=== PATIENT | female | born 1995 | race Caucasian/White ===

== ENCOUNTER 2017-03-26 13:18 | Observation (INO) | payer OTHER ==
[~2017-03-26] VITALS: Ht 172.7 cm; Wt 64.9 kg
[2017-03-26 14:02] VITALS: BP 114/79; PULSE 74; RESP 16; O2SAT 100
[2017-03-26 14:52] LABS: BASOPHILS % (AUTO) 0.2 % (0-3); EOSINOPHILS % (AUTO) 0.4 % (0-5); MONOCYTES % (AUTO) 6.6 % (4-12); Mean Corpuscular Hemoglobin 27.8 pg (27.0-35.0); Mean Corpuscular Volume 82.8 fL (81-100); NEUTROPHILS % (AUTO) 83.5 % (40-74); Platelet Count 313 bil/L (150-400)
[2017-03-26 15:15] LABS: Magnesium 1.9 mg/dL (1.6-2.6)
--- NOTE | 2017-03-26 15:51 | ED.REPORT ---
HPI-Abd Pain F Under 41 Date of Service Mar 26, 2017 ED Provider: Reynaldo Freire DO This is a 22-year-old female who is generally healthy who presents to the emergency department for abdominal pain. Patient notes that 10:30 AM this morning he developed sudden sharp abdominal pain in her right lower quadrant. The pain does not radiate. Originally it was relieved with lying down however now she it is constant pain that is worse with movement. She has not had anything like this prior. She has associated nausea without vomiting. She denies fevers, chills, chest pain, shortness of breath, diarrhea, constipation, urinary changes. She has no history of kidney stones or family history. She denies any history of STDs. She reports not being sexually active and denies being . She has not had any abdominal surgeries. Nursing Notes Stated Complaint: ABDOMINAL PAIN Chief Complaint: Female Abdominal Pain Nursing Notes Reviewed: Yes Allergies: Coded Allergies: No Known Allergies (Unverified , 03/26/17) General Time Seen by MD: 15:30 Chief Complaint Abdominal pain Hx Obtained From: Patient Past Medical History Past Medical History None Past Surgical History None Smoking History Never Smoker Social History Alcohol Use: Denies alcohol use Drug Use: Denies drug use Review of Systems Constitutional: Denies: Chills, Fever Respiratory: Denies: Shortness of breath Cardiovascular: Denies: Chest pain GI: Reports: Abdominal pain, Nausea, Denies: Vomiting Female: Denies: Dysuria, Urinary frequency Musculoskeletal: Denies: Back pain Complete sys rev & neg: except as marked. Physical Exam Initial Vital Signs Vital Signs (First) Date Time Temp Pulse Resp B/P Pulse Ox O2 Delivery O2 Flow Rate FiO2 03/26/17 14:02 36.7 74 16 114/79 100 03/26/17 16:10 Room Air Initial VS: Reviewed General/Constitutional: Awake, Alert, No acute distress, Well appearing, Not toxic appearing Respiratory / Chest: Breath sounds NL, Breath sounds = bilat, No respiratory distress Cardiovascular: Heart rate NL, Regular rhythm, Heart sounds NL Abdomen: Atraumatic, Soft, No guarding, No rebound, BS normoactive Tenderness/Guarding/Rebound: Positive: McBurney's point tender Negative Dickens's, negative obturator's, positive psoas sign. Interpretation & Diagnostics Lab Results Interpretation Result Diagram: 03/26/17 1436 03/26/17 1436 Test 03/26/17 14:30 03/26/17 14:36 Hold Urine Received (Received) White Blood Count 21.2th/mm3 (3.8-10.1) Red Blood Count 4.78mil/mm3 (3.90-5.20) Hemoglobin 13.3g/dL (12.0-15.6) Hematocrit 39.6% (35.0-46.0) Mean Corpuscular Volume 82.8fL (81-100) Mean Corpuscular Hemoglobin 27.8pg (27.0-35.0) Mean Corpuscular Hemoglobin Concent 33.6% (32.0-37.0) Red Cell Distribution Width 12.9% (12.3-15.4) Platelet Count 313bil/L (150-400) Neutrophils (%) (Auto) 83.5% (40-74) Lymphocytes (%) (Auto) 9.0% (14-46) Monocytes (%) (Auto) 6.6% (4-12) Eosinophils (%) (Auto) 0.4% (0-5) Basophils (%) (Auto) 0.2% (0-3) Sodium Level 139mEq/L (134-144) Potassium Level 3.9mEq/L (3.5-5.2) Chloride Level 101mEq/L (97-108) Carbon Dioxide Level 24mmol/L (18-29) Blood Urea Nitrogen 15mg/dL (6-20) Creatinine 0.64mg/dL (0.57-1.00) Estimat Glomerular Filtration Rate 168mL/min (>59) Glucose Level 85mg/dL (60-99) Calcium Level 9.6mg/dL (8.5-10.1) Magnesium Level 1.9mg/dL (1.6-2.6) Total Bilirubin 0.4mg/dL (0.0-1.2) Aspartate Amino Transf (AST/SGOT) 16U/L (0-50) Alanine Aminotransferase (ALT/SGPT) 10U/L (0-32) Alkaline Phosphatase 55U/L (25-150) Total Protein 7.8g/dL (6.4-8.4) Albumin 4.9g/dL (3.4-5.0) Lipase 23U/L (13-60) Hold Browne Top Tube Received (Received) CT Abd / Pelvis Interpretation IMPRESSION: 1. Mild appendiceal dilatation with wall thickening suspicious for early acute appendicitis. There is no periappendiceal fat stranding, abscess, or pneumoperitoneum. These findings were discussed with Dr. Edwards at 5:30 PM on 03/26/17. Dictated by: Mariajose Blackwood M.D. on 03/26/2017 at 17:23 Approved by: Mariajose Blackwood M.D. on 03/26/2017 at 17:31 Study type: Abdominal CT IV contrast Interpretation / Wet Read by: Interpret - Radiologist Re-Eval/Medical Decision Med Decision/Clinical Course This is a 22-year-old female who is generally healthy who presents for quadrant abdominal pain. She has positive McBurney's and leukocytosis. Concern is for appendicitis and pelvic related issues. Patient denies any sexual history. CT abdomen showed mild appendiceal dilatation with wall thickening suspicious for early acute appendicitis. Patient was admitted to the hospital for appendicitis. Consultation #1: Referral / Consult Name: Star Novoa MD Consulted With: Surgeon Call Returned at: 17:52 Estimator: Will see patient, Agrees with eval, Agrees with plan, Accepts admit Consultation #2: Referral / Consult Name: Star Novoa MD Consulted With: Surgeon Call Returned at: 18:20 Estimator: Will see patient, Accepts admit Note: Dr. Novoa will admit the pt and he may do surgery tomorrow morning. Counseled Regarding: Diagnosis, Lab results, Need for admission Discharge & Departure Primary Impression: Appendicitis Appendicitis type: acute appendicitis Acute appendicitis type: unspecified acute appendicitis type Qualified Code: K35.80 - Unspecified acute appendicitis Disposition: ADMITTED TO HOSPITAL Referrals: NOPCP (PCP) Attending Statment The patient was seen and examined together with Dr. yeboah on 03/26/17 and I have added additional information to the note above. Sarmad Yeboah DO Mar 26, 2017 15:51 Keira Carmona Mar 26, 2017 17:32 Reynaldo Freire DO Mar 26, 2017 18:54
[2017-03-26] MEDS ORDERED: Iohexol 300 mg/mL 30 mL Inj PO ONE (15:55)
[2017-03-26 16:10] VITALS: BP 125/76; PULSE 105; RESP 14
[2017-03-26] MEDS ORDERED: Piperacillin-Tazo 3.375 Gm Inj 3.375 GM in Dextrose 5% Minibag Plus 50 ML IV ONE (17:30)
--- NOTE | 2017-03-26 17:32 | DRSVH ---
PROCEDURE: CT ABDOMEN AND PELVIS WITH CONTRAST ([id number]) INDICATIONS: RLQ pain TECHNIQUE: After the administration of oral and intravenous contrast, 5 mm thick sections acquired from the diap hragms to the symphysis. 5 mm thick coronal and sagittal reformats were performed. For radiation do se reduction, the following was used: automated exposure control, adjustment of mA and/or kV accordi ng to patient size. COMPARISON: None. FINDINGS: Image quality: Excellent. ABDOMEN: Lung bases: Lung bases are clear. Heart size is normal. Solid organs: Liver and spleen are normal in size and enhancement. Gallbladder is unremarkable. Bi liary system is non-dilated. Pancreas enhances normally. No adrenal nodules. Kidneys are normal in size and enhancement, without hydronephrosis. Peritoneum and bowel: Stomach, small bowel, and colon loops are normal in caliber and wall thickness . No free fluid or air. Nodes and vessels: No retroperitoneal or mesenteric adenopathy. The appendix measures between 6 and 9 mm in diameter. The appendiceal wall is thickened. There is no periappendiceal fat stranding or mohit e fluid. Trace gas is present within the appendiceal lumen. No appendicolith. Aorta and inferior gigi a cava are normal in caliber. Miscellaneous: No ventral hernias. PELVIS: Genitourinary: Bladder wall thickness is normal. The uterus and ovaries are grossly unremarkable. Miscellaneous: No inguinal hernias or adenopathy. Bones: No suspicious bony lesions. No vertebral body compression fractures. IMPRESSION: 1. Mild appendiceal dilatation with wall thickening suspicious for early acute appendicitis. There is no periappendiceal fat stranding, abscess, or pneumoperitoneum. These findings were discussed with Dr. Edwards at 5:30 PM on 03/26/17. Dictated by: Mariajose Blackwood M.D. on 03/26/2017 at 17:23 Approved by: Mariajose Blackwood M.D. on 03/26/2017 at 17:31
[2017-03-26] MEDS ORDERED: diphenhydrAMINE 25 mg Capsule PO PRN (18:15)
[2017-03-26] MEDS ORDERED: Ondansetron 2 mg/mL 2 mL Inj IVPUSH PRN (18:15)
[2017-03-26 19:34] VITALS: BP 126/71; PULSE 99; RESP 16; O2SAT 100
[2017-03-26 20:47] VITALS: BP 109/73; PULSE 89; RESP 16; O2SAT 94
[2017-03-27 01:26] VITALS: BP 100/60; PULSE 101; RESP 18; O2SAT 98
[2017-03-27] MEDS: Piperacillin-Tazo 3.375 Gm Inj 3.375 GM in Dextrose 5% Minibag Plus 50 ML IV SCH ×2 (03:04→10:30)
[2017-03-27 05:36] LABS: BASOPHILS % (AUTO) 0.4 % (0-3); EOSINOPHILS % (AUTO) 2.1 % (0-5); MONOCYTES % (AUTO) 8.1 % (4-12); Mean Corpuscular Hemoglobin 27.7 pg (27.0-35.0); NEUTROPHILS % (AUTO) 68.7 % (40-74); Platelet Count 301 bil/L (150-400)
--- NOTE | 2017-03-27 05:53 | NUR ---
Admit/Activity Pt arrived to [facility] floor from ED at 1945 on 03/26/17 for out appendicitis. Pt had c/o pain to right abdomen of 6 out of 10 with arrival to unit. Gave pt 200mg PO Motrin. Has not had any c/o pain since then. IV antibiotics are running. Bowel tones present, denies SOB, N/V, CP. VSS.
[2017-03-27 06:23] VITALS: BP 109/75; PULSE 70; RESP 16; O2SAT 100
[2017-03-27 08:02] VITALS: BP 122/83; PULSE 82; RESP 16; O2SAT 99
--- NOTE | 2017-03-27 09:19 | NUR ---
Social Work- Screening/Readiness for Discharge Data: EMR reviewed. Pt is a 22 year old female admitted 03/26/17 for acute appy per H&P. Pt's insurance is [employer]. Pt has no PCP listed at this time. Pt's NOK is mother Monica Norwood, . SW met with pt and mother at bedside regarding d/c plan, SW role explained. Pt did not participate in this assessment as she was asleep and remained asleep despite conversation in pt's room. Per mother, pt resides at home with her mother in [place] where she is independent with ADLs and self-care. 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 Pt drives. Pt's mother declined DPOA and no DPOA is on file. SW wrote phone number and plan on whiteboard. Pt anticipated to return home with her mother to transport via POV. No D/C needs. SW will continue to follow. Assessment: Pt who is independent with ADLs and self-care Plan: Pt anticipated to return home with her mother to transport via POV. No D/C needs. SW will continue to follow. LUDY Clark
[2017-03-27] MEDS ORDERED: AMOX-366 PO (09:35)
--- NOTE | 2017-03-27 09:36 | PCM.DISURG ---
Surgical Discharge Instruction Date of Service Mar 27, 2017 Dates of Hospitalization Date of Hospital Admission Mar 26, 2017 at 19:14 Providers Admitting Physician: Star Novoa MD Primary Care Physician: Meena Attending Physician: Star Novoa MD Discharge Diagnosis Discharge Diagnosis possible appendicitis versus other infection Diet Discharge Diet: No restrictions Activity Discharge Activity-General: No restrictions Dressing and Incisional Care Hygiene: May shower Follow Up Plan Follow Up Plan follow up in 10-14 days with [facility] as needed Call your provider for: Fever, Chills, Increasing abdominal pain Star Novoa MD Mar 27, 2017 09:36
--- NOTE | 2017-03-27 11:32 | NUR ---
Social Work- Discharge Data: EMR reviewed. Pt is a 22 year old female admitted 03/26/17 for acute appy per H&P. Pt discussed in multidisciplinary rounds, pt to d/c today. Discharge orders are active. Pt to return home with her mother to transport via POV. No D/C needs. Assessment: Pt who is independent with ADLs and self-care Plan: Pt to return home with her mother to transport via POV. No D/C needs. LUDY Clark
[2017-03-27 11:47] VITALS: BP 118/68; PULSE 86; RESP 16; O2SAT 99
--- NOTE | 2017-03-27 11:58 | NUR ---
Discharge Pt to discharge to home with her family at [place]; VSS, IV discontinued, no c/o pain and requesting no pain medication this morning. Pt received written and verbal discharge instructions to which her and family state verbal understand. Care notes for Appendicitis and Amoxicillin given. Pt instructed to f/u with [facility] in 10-14 days unless s/s worsen, pt instructed to take all medications as prescribed and to take 2 servings of yogurt per day and Probiotics and to contact physician if s/s of diarrhea to which pt states understanding. E-scripted rx to pt pharmacy. All pt belongings with pt and family; pt and family ambulated off the floor with aide.
--- NOTE | 2017-03-27 14:26 | PROG NOTE ---
[address] [address] PROGRESS NOTE PATIENT: MATTIE CHICAS : 1995 MR#: [id number] ADMIT: 03/26/2017 JOB ID: [id number] DATE: 03/27/2017 SUBJECTIVE: She is now 12 hours status post initiation of antibiotic treatment. She remains afebrile, stable vital signs. She tells me that her abdominal pain is nearly completely resolved. OBJECTIVE: On examination, her abdomen is completely benign. LABORATORY DATA: Show that her white count has dropped down to 12.7, hematocrit is 38. IMPRESSION/PLAN: Doing well. We will discharge her home with 10 days of p.o. Augmentin. She may have had appendicitis that has responded to antibiotic treatment or she may have had some other infection. She will follow up with the [facility].
--- NOTE | 2017-03-27 14:58 | DIS ---
[address] [address] DISCHARGE SUMMARY PATIENT: MATTIE CHICAS : 1995 MR#: [id number] ADMIT: 03/26/2017 JOB ID: [id number] DIS: 03/27/2017 DISCHARGE DIAGNOSIS: Possible appendicitis versus other intra-abdominal infection. HOSPITAL COURSE: A 22-year-old female who presented with possible appendicitis versus other intra-abdominal infection. Her white count was 21.2 on presentation, and she was treated with Zosyn for possible appendicitis. The following day her abdominal pain had resolved, her white blood cell count was 12.7 and she was discharged on a 10-day course of p.o. Augmentin with followup in the [facility].
--- NOTE | 2017-03-30 07:12 | HP ---
[address] [address] HISTORY AND PHYSICAL PATIENT: MATTIE CHICAS : 1995 MR#: [id number] ADMIT: 03/26/2017 JOB ID: [id number] CHIEF COMPLAINT/IDENTIFICATION: A 22-year-old woman with a question of appendicitis. HISTORY OF PRESENT ILLNESS: The patient has had right lower quadrant pain for approximately one day, beginning at work. She denies nausea and vomiting. She came to the emergency department, where it was felt that she may have appendicitis. PAST MEDICAL HISTORY: Negative. MEDICATIONS: None. ALLERGIES: None. SOCIAL HISTORY: Lives with her folks; is headed off in a few weeks for [employer]. Negative tobacco. Negative daily alcohol. FAMILY HISTORY: Noncontributory. REVIEW OF SYSTEMS: General review of systems negative. Specifically, she also denies sexual activity, vaginal discharge, dysuria, all other GI tract symptoms, other than the pain. PHYSICAL EXAMINATION: No acute this distress. Afebrile. Normal vital signs. Sclerae are clear. Neck is supple. Breasts are not examined. Lungs are clear. Heart sounds are regular. Abdomen has marked tenderness in the right lower quadrant and suprapubic area. Extremities are without edema. Neurologically, she is intact. LABORATORIES: Her white count is 21.2, hematocrit is 39.6. Chemistries are all normal, including normal LFTs and normal lipase. IMAGING: She has had a CT scan, and I have reviewed the report and the images. There is minimal appendiceal dilation. No periappendiceal fat stranding. No free fluid. No other signs of inflammation in the abdomen or pelvis. IMPRESSION AND PLAN: This is a young woman with right lower quadrant pain and leukocytosis that is in excess of what I would expect, based on her exam and her CT findings. I have discussed the potential differential diagnosis for a young woman with right lower quadrant pain, a white count of 21,000, a negative urine test, and treatment options for appendicitis. At this point, after a full discussion with the patient and her mother, we elected to treat her with antibiotics for presumptive appendicitis, with the plan being that, if she does not respond dramatically overnight, we will then take her to the operating room to take out her appendix. The patient and her mother are in agreement with this plan. I did not have the opportunity to interview the patient without her mother present, but I believe this is a good course of action. Please note that this is a re-dictation of a previously dictated admission history and physical on the day of admission.
== END 2017-03-27 12:00 | disposition home or self-care (01) ==
LOC: SED 13:18 → OSC 19:14
PROVIDERS: ADMIT Surgery; ATTEND Surgery
DX: K35.80 Unspecified acute appendicitis (principal)
CPT/HCPCS: 36415; 44970; 74177; 80053; 81025; 83690; 83735; 85025; 99285; G0378; J2543; Q9967